=== PATIENT | female | born 1940 | race Caucasian/White ===

== ENCOUNTER 2022-03-13 10:26 | Inpatient (IN) | payer MEDICARE, OTHER ==
[~2022-03-13] VITALS: Ht 162.6 cm; Wt 81.8 kg
[2022-03-13] MEDS ORDERED: ROSU10TA72 PO (10:38)
[2022-03-13] MEDS ORDERED: BUME1TAB34 PO (10:38)
[2022-03-13] MEDS ORDERED: [UNRECOGNIZED DRUG - CODE] PO (10:38)
[2022-03-13] MEDS ORDERED: METO50 PO (10:38)
[2022-03-13 11:05] LABS: BASOPHILS % (AUTO) 0.5 % (0.0-2.0); EOSINOPHILS % (AUTO) 2.5 % (1.0-6.0); HEMATOCRIT 34.5 % (36-46); HEMOGLOBIN 11.4 g/dL (12.0-16.0); LYMPHOCYTES # (AUTO) 1.1 K/uL (1.0-4.8); LYMPHOCYTES % (AUTO) 20.6 % (22.0-44.0); MEAN CORPUSCULAR HEMOGLOBIN 32.4 pg (26.0-34.0); MEAN CORPUSCULAR HGB CONC 32.9 G/dL (31.0-37.0); MEAN CORPUSCULAR VOLUME 98 fL (80-100); MONOCYTES # (AUTO) 0.3 K/uL (0.1-1.0); MONOCYTES % (AUTO) 5.6 % (2.0-9.0); NEUTROPHILS # (AUTO) 3.9 K/uL (1.8-7.7); NEUTROPHILS % (AUTO) 70.8 % (40.0-70.0); PLATELET COUNT (AUTO) 187 K/uL (150-450); RED BLOOD CELL COUNT(AUTO) 3.51 MIL/uL (4.00-5.20); RED CELL DISTRIBUTION WIDTH 13.9 % (11.5-14.5)
[2022-03-13 11:13] LABS: ANION GAP 6 mmol/L (8-16); CALCIUM, TOTAL 8.6 mg/dL (8.8-10.5); CARBON DIOXIDE 29 mmol/L (22-29); CHLORIDE 105 mmol/L (98-107); CREATININE 0.88 mg/dL (0.60-1.30); GLUCOSE,RANDOM 115 mg/dL (70-110); POTASSIUM 3.9 mmol/L (3.5-5.1); SODIUM SERUM 140 mmol/L (136-145); UREA NITROGEN, BLOOD 18 mg/dL (7-18)
[2022-03-13 11:14] LABS: GLOMERULAR FILTR. RATE CALC > 60 mL/min (>60)
[2022-03-13 11:19] LABS: ALANINE AMINOTRANSFERASE 17 U/L (12-78); ALBUMIN 3.4 g/dL (3.4-5.0); ALKALINE PHOSPHATASE 71 U/L (46-116); ASPARTATE AMINOTRANSFERASE 23 U/L (15-37); BILIRUBIN,TOTAL 0.6 mg/dL (0.1-1.0); TOTAL PROTEIN, SERUM 6.8 g/dL (6.4-8.2)
[2022-03-13] MEDS ORDERED: MELO-381 PO (11:24)
[2022-03-13] MEDS ORDERED: ASPI-1450 PO (11:24)
[2022-03-13] MEDS ORDERED: LOSA-382 PO (11:24)
[2022-03-13] MEDS ORDERED: RIVA20TA PO (11:24)
[2022-03-13] MEDS ORDERED: LEVO75 PO (11:24)
[2022-03-13] MEDS ORDERED: PIOG30TA10 PO (11:24)
[2022-03-13 11:36] LABS: INR 1.3 (0.9-1.1); PROTHROMBIN TIME 13.8 SEC (9.4-11.6)
[2022-03-13] MEDS ORDERED: INSULIN LISPRO 100 UNITS/ML SQ PRN (13:00)
[2022-03-13] MEDS ORDERED: ONDANSETRON HCL 4 MG/2 ML VIAL IVP PRN (13:00)
[2022-03-13] MEDS ORDERED: DEXTROSE 50%-WATER 25 GM/50 ML SYRINGE IVP PRN (13:00)
[2022-03-13 13:38] LABS: COVID AG,FIA SOURCE NASAL SWAB
[2022-03-13 13:46] LABS: AMPHET/METH SCREEN,URINE NEGATIVE (NEGATIVE); BARBITURATE SCREEN, URINE NEGATIVE (NEGATIVE); BENZODIAZEPINES SCREEN,URINE NEGATIVE (NEGATIVE); CANNABINOID SCREEN,URINE NEGATIVE (NEGATIVE); COCAINE SCREEN,URINE NEGATIVE (NEGATIVE); METHADONE SCREEN, URINE NEGATIVE (NEGATIVE); OPIATE SCREEN,URINE NEGATIVE (NEGATIVE)
[2022-03-13 13:46] LABS: THYROID STIMULATING HORMONE 3.92 uIU/mL (0.36-3.74)
[2022-03-13 13:54] LABS: PHENCYCLIDINE SCREEN,URINE NEGATIVE (NEGATIVE)
[2022-03-13 15:26] LABS: APPEARANCE,URINE CLEAR (CLEAR); BILIRUBIN,URINE NEGATIVE (NEGATIVE); GLUCOSE, URINE (UA) NEGATIVE (NEGATIVE); KETONES,URINE NEGATIVE (NEGATIVE); LEUKOCYTE ESTERASE ,URINE NEGATIVE (NEGATIVE); NITRATE,URINE NEGATIVE (NEGATIVE); OCCULT BLOOD,URINE TRACE (NEGATIVE); PH,URINE 7.5 (5.0-8.0); PROTEIN,URINE NEGATIVE (NEGATIVE); UROBILINOGEN,URINE <=1.0 mg/dL (<=1.0)
[2022-03-13 15:31] VITALS: BP 168/70
[2022-03-13 15:32] LABS: BACTERIA,URINE Rare /HPF (None Seen); SQUAMOUS EPITHELIAL CELL,UR Few /LPF (None Seen); WBC,URINE 0-2 /HPF (0-5)
[2022-03-13 15:38] VITALS: BP 173/89
[2022-03-13] MEDS: AmLODIPine BESYLATE 10 MG TABLET PO SCH (16:21)
[2022-03-13] MEDS ORDERED: RIVAROXABAN 20 MG TABLET PO SCH (18:00)
[2022-03-13] MEDS ORDERED: INFLUENZA VIRUS VACCINE QVS 2022-23 (6MO+)/PF 60 MCG/0.5 ML SYRINGE IM. ONE (18:15)
[2022-03-13] MEDS ORDERED: PNEUMOCOCCAL VACCINE POLYVALENT 0.5 ML VIAL [PPSV23] IM. ONE (18:15)
[2022-03-13 18:32] VITALS: BP 138/58
[2022-03-13 20:17] VITALS: BP 131/56
[2022-03-13] MEDS: METOPROLOL TARTRATE 25 MG TABLET PO SCH (20:43)
[2022-03-13] MEDS: DOCUSATE SODIUM 100 MG CAPSULE PO SCH (20:44)
[2022-03-14] VITALS (8 sets, daily range): BP systolic 125–146; BP diastolic 55–67
[2022-03-14] MEDS: ACETAMINOPHEN 325 MG TABLET PO PRN ×2 (05:45→18:05)
[2022-03-14] MEDS: ROSUVASTATIN CALCIUM 10 MG TABLET PO SCH (08:39)
[2022-03-14] MEDS: AmLODIPine BESYLATE 10 MG TABLET PO SCH (08:40)
[2022-03-14] MEDS: FAMOTIDINE 20 MG TABLET PO SCH (08:40)
[2022-03-14] MEDS: METOPROLOL TARTRATE 25 MG TABLET PO SCH ×2 (08:40→20:35)
[2022-03-14] MEDS: LOSARTAN POTASSIUM 50 MG TABLET PO SCH (08:40)
[2022-03-14] MEDS: DOCUSATE SODIUM 100 MG CAPSULE PO SCH ×2 (08:45→20:35)
[2022-03-14] MEDS ORDERED: RIVAROXABAN 20 MG TABLET PO SCH (18:00)
[2022-03-15 00:21] VITALS: BP 128/56
[2022-03-15 04:54] VITALS: BP 142/67
[2022-03-15 07:06] LABS: LDL CHOLESTEROL DIRECT 63 mg/dL (0-99)
[2022-03-15 07:21] LABS: BASOPHILS % (AUTO) 0.1 % (0.0-2.0); EOSINOPHILS % (AUTO) 3.5 % (1.0-6.0); HEMATOCRIT 35.6 % (36-46); HEMOGLOBIN 11.8 g/dL (12.0-16.0); LYMPHOCYTES # (AUTO) 1.4 K/uL (1.0-4.8); LYMPHOCYTES % (AUTO) 35.4 % (22.0-44.0); MEAN CORPUSCULAR HEMOGLOBIN 32.6 pg (26.0-34.0); MEAN CORPUSCULAR HGB CONC 33.1 G/dL (31.0-37.0); MEAN CORPUSCULAR VOLUME 98 fL (80-100); MONOCYTES # (AUTO) 0.4 K/uL (0.1-1.0); MONOCYTES % (AUTO) 9.4 % (2.0-9.0); NEUTROPHILS % (AUTO) 51.6 % (40.0-70.0); PLATELET COUNT (AUTO) 197 K/uL (150-450); RED BLOOD CELL COUNT(AUTO) 3.62 MIL/uL (4.00-5.20); RED CELL DISTRIBUTION WIDTH 13.8 % (11.5-14.5)
[2022-03-15 07:36] VITALS: BP 137/59
[2022-03-15 07:54] LABS: ANION GAP 3 mmol/L (8-16); CALCIUM, TOTAL 8.8 mg/dL (8.8-10.5); CARBON DIOXIDE 30 mmol/L (22-29); CHLORIDE 107 mmol/L (98-107); CREATININE 0.86 mg/dL (0.60-1.30); GLUCOSE,RANDOM 100 mg/dL (70-110); POTASSIUM 4.7 mmol/L (3.5-5.1); SODIUM SERUM 140 mmol/L (136-145); UREA NITROGEN, BLOOD 16 mg/dL (7-18)
[2022-03-15 07:55] LABS: GLOMERULAR FILTR. RATE CALC > 60 mL/min (>60)
[2022-03-15] MEDS: AmLODIPine BESYLATE 10 MG TABLET PO SCH (08:16)
[2022-03-15] MEDS: FAMOTIDINE 20 MG TABLET PO SCH (08:16)
[2022-03-15] MEDS: METOPROLOL TARTRATE 25 MG TABLET PO SCH (08:16)
[2022-03-15] MEDS: DOCUSATE SODIUM 100 MG CAPSULE PO SCH (08:17)
[2022-03-15] MEDS: LOSARTAN POTASSIUM 50 MG TABLET PO SCH (08:17)
[2022-03-15] MEDS: ROSUVASTATIN CALCIUM 10 MG TABLET PO SCH (08:19)
[2022-03-15 11:05] VITALS: BP 118/58
[2022-03-15] MEDS: ACETAMINOPHEN 325 MG TABLET PO PRN (12:35)
[2022-03-15 15:33] VITALS: BP 124/75
[2022-03-15 18:43] LABS: GLUCOMETER DEV NAME(LOC) 5N.3; GLUCOSE,POINT OF CARE 77 MG/DL (70-110)
[2022-03-15 18:43] LABS: GLUCOMETER DEV NAME(LOC) 5N.3; GLUCOSE,POINT OF CARE 129 MG/DL (70-110)
[2022-03-15 18:43] LABS: GLUCOMETER DEV NAME(LOC) 5N.3; GLUCOSE,POINT OF CARE 148 MG/DL (70-110)
[2022-03-15 21:19] LABS: GLUCOMETER DEV NAME(LOC) 5N.1C; GLUCOSE,POINT OF CARE 100 MG/DL (70-110)
[2022-03-15 21:20] LABS: GLUCOMETER DEV NAME(LOC) 5N.1C; GLUCOSE,POINT OF CARE 98 MG/DL (70-110)
[2022-03-15 21:20] LABS: GLUCOMETER DEV NAME(LOC) 5N.1C; GLUCOSE,POINT OF CARE 98 MG/DL (70-110)
[2022-03-15 21:22] LABS: GLUCOMETER DEV NAME(LOC) 5S.1B; GLUCOSE,POINT OF CARE 104 MG/DL (70-110)
== END 2022-03-15 16:15 | disposition home health service (06) | DRG 69 ==
LOC: EMS 10:26 → 5S 13:51
PROVIDERS: ADMIT Internal Medicine; ATTEND Internal Medicine
DX: G45.9 Transient cerebral ischemic attack, unspecified (principal); I11.0 Hypertensive heart disease with heart failure; I50.9 Heart failure, unspecified; R29.810 Facial weakness; E66.9 Obesity, unspecified; E78.5 Hyperlipidemia, unspecified; I49.5 Sick sinus syndrome; E11.9 Type 2 diabetes mellitus without complications; I48.0 Paroxysmal atrial fibrillation; R47.81 Slurred speech; I67.1 Cerebral aneurysm, nonruptured; Z20.822 Contact with and (suspected) exposure to COVID-19; I25.10 Atherosclerotic heart disease of native coronary artery without angina pectoris; Z79.01 Long term (current) use of anticoagulants; Z82.49 Family history of ischemic heart disease and other diseases of the circulatory system; Z83.3 Family history of diabetes mellitus; Z86.73 Personal history of transient ischemic attack (TIA), and cerebral infarction without residual deficits; Z95.0 Presence of cardiac pacemaker; Z79.899 Other long term (current) drug therapy; Z68.31 Body mass index [BMI] 31.0-31.9, adult
CPT/HCPCS: 70496; 70498; 71045; 80048; 80053; 81001; 82948; 82962; 83721; 84443; 84484; 85025; 85610; 85730; 86850; 86900; 86901; 87081; 92610; 93005; 93306; 97116; 97162; 97165; 97530; 99291; G0378; 36415-L1; 36415-TC; 70450; 70450-TC